=== PATIENT | female | born 1995 | race Caucasian/White ===

== ENCOUNTER 2019-02-22 14:29 | Emergency (ER) | payer OTHER ==
[~2019-02-22] VITALS: Wt 55.0 kg
[2019-02-22 14:31] VITALS: BP 109/54; PULSE 74; RESP 20
--- NOTE | 2019-02-24 17:43 | ERD ---
ER Documentation Chief Complaint Chief Complaint n/v, states vomited blood today, had watermelon earlier, 18 wks preg HPI 23-year-old G1, P0 female in her 18th week of with an LMP of October 24, 2018 presents with concern that she might of had blood in her vomit today. Patient states that she has had nausea and vomiting throughout the and her OB is aware of this but today she noticed there is a little bit of red in her vomit . She does admit to eating watermelon before vomiting. Patient denies any abdominal pain, fevers, chills, vaginal bleeding, lightheadedness. ROS All systems reviewed and are negative except as per history of present illness. Allergies Allergies: Coded Allergies: No Known Allergy (Unverified , 02/22/19) PMhx/Soc Medical and Surgical Hx: pt denies Medical Hx, pt denies Surgical Hx Hx Alcohol Use: No Hx Substance Use: No Hx Tobacco Use: No Smoking Status: Never smoker FmHx Family History: No diabetes, No coronary disease, No other Physical Exam Vitals Vital Signs Date Temp Pulse Resp B/P (MAP) Pulse Ox O2 O2 Flow FiO2 Time Delivery Rate 02/22/19 98.4 74 20 109/54 99 14:31 (72) Physical Exam Const: No acute distress Head: Atraumatic Eyes: Normal Conjunctiva ENT: Normal External Ears, Nose and Mouth. Neck: Full range of motion. No meningismus. Resp: Clear to auscultation bilaterally Cardio: Regular rate and rhythm, no murmurs Abd: Soft, non tender, non distended. Normal bowel sounds Skin: No petechiae or rashes Back: No midline or flank tenderness Ext: No cyanosis, or edema Neur: Awake and alert Psych: Normal Mood and Affect Procedures/MDM MDM: Patient brought in a sample of the vomitus and it as light pink without any noticeable blood, rather the vomitus had consistency of watermelon and there was even watermelon chunks in the vomitus itself. Patient is denying any symptoms associated with GI bleed and therefore I have low suspicion that there is any emergent bleeding going on. I did advise patient that is possible due to her continued vomiting she might have ruptured a capillary but this would not be a concern as there is no current bleeding and this whole incident was an isolated episode. I still think that the pink color of her vomitus is from a watermelon, not blood. I have low suspicion for esophageal rupture, GI bleed, or any emergent condition. At this time, patient is stable for discharge and outpatient management. I have instructed the patient to follow-up with his/her primary care physician in 1-2 days. I have discussed with the patient the possibility of needing to see a specialist for further workup and imaging studies if symptoms persist. I have instructed the patient to promptly return to the ER for any new or worsening symptoms including but not limited to increased pain, fever, nausea, vomiting, weakness or LOC. The patient and/or family expressed understanding of and agreement with this plan. All questions were answered. Home care instructions were provided. DISCLAIMER: Inadvertent spelling and grammatical errors are likely due to EHR/dictation software use and do not reflect on the overall quality of patient care. Also, please note that the electronic time recorded on this note does not necessarily reflect the actual time of the patient encounter. Departure Diagnosis: Primary Impression: Vomiting affecting Condition: Stable Patient Instructions: Hyperemesis Gravidarum Referrals: [facility] YOU HAVE RECEIVED A MEDICAL SCREENING EXAM AND THE RESULTS INDICATE THAT YOU DO NOT HAVE A CONDITION THAT REQUIRES URGENT TREATMENT IN THE EMERGENCY DEPARTMENT. FURTHER EVALUATION AND TREATMENT OF YOUR CONDITION CAN WAIT UNTIL YOU ARE SEEN IN YOUR DOCTORS OFFICE WITHIN THE NEXT 1-2 DAYS. IT IS YOUR RESPONSIBILITY TO MAKE AN APPOINTMENT FOR FOLOW-UP CARE. IF YOU HAVE A PRIMARY DOCTOR --you should call your primary doctor and schedule an appointment IF YOU DO NOT HAVE A PRIMARY DOCTOR YOU CAN CALL OUR PHYSICIAN REFERRAL HOTLINE AT IF YOU CAN NOT AFFORD TO SEE A PHYSICIAN YOU CAN CHOSE FROM THE FOLLOWING [facility] [address] [facility] [address] [facility] [facility] [address] [facility] [address] [facility] [address] [facility]. [facility]. [address] Additional Instructions: FOLLOW UP WITH YOUR PRIMARY CARE PHYSICIAN TOMORROW.Return to this facility if you are not improving as expected. TANO YIP Feb 24, 2019 17:43
== END 2019-02-22 16:27 | disposition home or self-care (01) ==
LOC: FTE 14:29
DX: O21.9 Vomiting of pregnancy, unspecified (principal); Z3A.18 18 weeks gestation of pregnancy
CPT/HCPCS: 99282

== ENCOUNTER 2019-05-24 17:44 | Outpatient (CLI) | payer OTHER ==
[~2019-05-24] VITALS: Ht 162.6 cm; Wt 61.9 kg
[~2019-05-24 17:44] MED LIST: FERR325T5 PO; PREN-93 PO
[2019-05-24 19:15] VITALS: BP 118/71; PULSE 71; RESP 18
[2019-05-24 19:16] VITALS: Ht 162.6 cm; Wt 61.9 kg
[2019-05-24] MEDS ORDERED: LACTATED RINGER'S 500 ML IV ONE (19:30)
[2019-05-24] MEDS ORDERED: LACTATED RINGER'S 1,000 ML IV SCH (19:30)
[2019-05-24] MEDS ORDERED: ONDANSETRON 4 MG INJ IV PRN (19:30)
== END 2019-05-24 22:15 | disposition home or self-care (01) ==
LOC: OBT 17:44 → L-D 17:48 → OBT 22:15
PROVIDERS: ATTEND Obstetrics & Gynecology
DX: O21.0 Mild hyperemesis gravidarum (principal); Z3A.31 31 weeks gestation of pregnancy
CPT/HCPCS: 36415; 76815; 76817; 76818; 80053; 81001; 85025; 96360; 96361; J7120; Z7500; 81003; G0463